=== PATIENT | female | born 1945 | race African-American/Black ===

== ENCOUNTER 2025-09-16 18:56 | Inpatient (IN) | payer MEDICARE, MEDICAID ==
[~2025-09-16] VITALS: Ht 172.7 cm; Wt 81.8 kg
[~2025-09-16 18:56] MED LIST: AMLO-912 PO; CARV25TA2 PO; CLON0.2T; SPIR25TA5 PO; [UNRECOGNIZED DRUG - REMARK]
[2025-09-16 19:35] LABS: MEAN PLATELET VOLUME 8.6 FL (7.4-10.4)
[2025-09-16 19:37] LABS: RED CELL DISTRIBUTION WIDTH 15.9 % (11.5-14.5)
--- NOTE | 2025-09-16 19:41 | RADIOLOGY REPORT ---
EXAM: DI CHEST,SINGLE VIEW HISTORY: CP TECHNIQUE: 1 view of the chest COMPARISON: None FINDINGS/IMPRESSION: LUNGS: No pleural effusion, consolidation, or pneumothorax. MEDIASTINUM: Mild prominence of the aortic knob, which may be suggestive of hypertension. BONES: No acute osseous abnormality. OTHER: None.
[2025-09-16 19:52] LABS: CREATININE 0.99 MG/DL (0.40-0.90); PRO BRAIN NATRIURETIC PEPTIDE 414 PG/ML (0-450); TOTAL CARBON DIOXIDE 19.8 MMOL/L (24-32); eCRCL 46 ML/MIN; eGFR 65 ML/MIN
[2025-09-16 19:56] LABS: EOSINOPHILS % (MANUAL) 1.0 % (0-6); LYMPHOCYTES % (MANUAL) 47.0 % (21-51); MONOCYTES % (MANUAL) 3.0 % (2-12); NEUTROPHILS % (MANUAL) 49.0 % (42-75); PLATELET ESTIMATE NORMAL
--- NOTE | 2025-09-16 20:19 | Physician Documentation ---
History of Present Illness ~ Chief Complaint: Mechanical Fall Stated Complaint: FALL/HEAD STRIKE Time Seen by MD: 19:26 Primary Medical Doctor: NONE Source: patient Mode of Arrival: POV Exam Limitations: no limitations HPI Presents secondary to fall. She states she is weak and fell backwards hitting the back of her head. Denies taking blood thinners. All over body pain. Furthermore, states she is having pain described as a weird sensation when she voids. Denies abdominal pain. Denies nausea vomiting diarrhea. She denies chest pain or pressure. Denies shortness or breath. Denies dizziness, lightheadedness or syncope. Tetanus within 5 Years?: No Medication Reconciliation Allergies: Coded Allergies: baclofen (Verified Allergy, Intermediate, INCONTINENCE, 09/16/25) Scheduled Amlodipine Besylate (Norvasc), 1 TABLET PO DAILY Carvedilol (Carvedilol), 25 MG PO BID, (Reported) Spironolactone (Spironolactone), 1 TABLET PO DAILY Miscellaneous Medications Clonidine HCl (Clonidine HCl), (Reported) [Unknown Htn Meds], (Reported) Past Medical History Past Medical History: Congestive Heart Failure, Hypertension, COPD, Diabetes Past Surgical History: , orthopedic surgeries Smoking Status: Current every day smoker Alcohol Use: Heavy Drug Use: none Lives with: Family Lives In: Home Occupation: disabled Review of Systems ROS ROS negative except noted in HPI Physical Exam Vital Signs: RN Vital Signs have been reviewed: Yes, Temperature: 97.2, Source: Temporal, Heart Rate: 68, Respiratory Rate: 18, Pulse Oximetry: 98, Weight: 81.810 Oxygen Flow Rate: 0 Pulse Oximetry Reflects: adequate oxygenation Physical Exam General: Awake, alert, oriented. No apparent distress HEENT: Normocephalic. There is soft tissue swelling to the posterior head. Oropharynx is normal. Pupils equal and reactive. Respiratory: Lungs are wheezing on the right to auscultation. Clear left. No respiratory distress. Chest: Normal shape and size. No accessory muscle use. Cardiovascular: Regular rate and rhythm. S1-S2. No murmur, gallop, rub. Gastrointestinal: Abdomen is soft. generalized tenderness to palpation. Bowel sounds present. Extremities: No lower extremity edema, cyanosis or clubbing. Neurologic: Alert and oriented x4. Nonfocal. Moving all extremities. No focal weakness. No slurred speech. facial features symmetrical. Psychiatric: Normal mood and affect. Skin: Normal color. Warm and dry. Progress Progress Note 2144: Re-evaluated after labs received. She now states that she drinks 1 pint per day of ETOH. She states that she is intermittently dizzy and has had sycnope in the past. Last episode of syncope was months ago. She states that she has been more weak than usual. She usually walks with a walker. She states that she has all over body pain which is chronic. 2204: Admit to resident Results/Orders Results/Orders Orders - KARLA RITCHIE FLEET SALESPERSON Chest,Single View (09/16/25 19:14) Monitor (09/16/25 19:14) Saline Lock (09/16/25 19:14) Oxygen (09/16/25 19:14) BMP (09/16/25 19:14) PBNP (09/16/25 19:14) Electrocardiogram (09/16/25 19:14) Hs Troponin I W Calculations (09/16/25 22:14) Ct Head (09/16/25 19:14) Ct Cervical Spine (09/16/25 20:10) Recheck Vital Signs (09/16/25 ) Cult Urine + Universal Ct (09/16/25 21:18) Culture Blood (09/16/25 21:43) Saline Lock (09/16/25 21:43) Page Hospitalist (09/16/25 21:43) Fill Out Med Reconciliation (09/16/25 21:43) C-Reactive Protein (09/16/25 19:24) Ethanol (09/16/25 19:24) MG (09/16/25 19:24) Osmolality (09/16/25 19:24) PHOS (09/16/25 19:24) TSH (09/16/25 19:24) Hgb A1c (09/16/25 19:24) Lipid Panel (09/16/25 19:24) Completed Orders - KARLA RITCHIE FLEET SALESPERSON Chest,Single View (09/16/25 19:14) Cbc/Diff (09/16/25 19:14) Hs Troponin I W Calculations (09/16/25 19:14) Hs Troponin I W Calculations (09/16/25 21:14) Ct Head (09/16/25 19:14) Man Diff (09/16/25 19:24) Ct Cervical Spine (09/16/25 20:10) Ua W/Microscopic, Cult If Ind (09/16/25 20:50) ESR (09/16/25 21:43) Normal Saline 1000ml (0.9% Sodium Chlori (09/16/25 21:45) Ceftriaxone 2gm/D5w 50ml Bag (Rocephin 2 (09/16/25 21:45) Lacticsepsis (09/16/25 21:43) Medications Received in ER Medications (Trade) Dose Ordered Sig/Kadie Route PRN Reason Start Time Stop Time Status Last Admin Dose Admin (0.9% sodium chloride (NS) 1000ml IV soln) 1,000 ml ONCE ONCE IVB 09/16/25 21:45 09/16/25 21:51 DC 09/16/25 22:38 1,000 ML Ceftriaxone Sodium/Dextrose 50 ml @ 100 mls/hr ONCE ONCE IV 09/16/25 21:45 09/16/25 22:14 DC 09/16/25 22:39 100 MLS/HR (Ford 10/325mg tab) 1 tab Q4H PRN PO SEVERE PAIN 7-10 09/16/25 22:45 09/16/25 23:11 1 TAB Vital Signs 09/16/25 09/16/25 09/16/25 09/16/25 19:04 19:30 20:44 21:09 Temp 97.2 Pulse 68 71 67 Resp 18 18 16 18 B/P (MAP) 129/74 124/76 (92) 125/72 (89) Pulse Ox 98 100 99 O2 Flow Rate 0 0 09/16/25 09/16/25 23:04 23:11 Pulse 70 Resp 18 16 B/P (MAP) 146/82 (103) Pulse Ox 99 Laboratory Tests Test 09/16/25 19:24 09/16/25 20:50 09/16/25 22:07 White Blood Count 3.2 L Red Blood Count 3.99 L Hemoglobin 12.7 Hematocrit 38.6 Mean Corpuscular Volume 96.6 Mean Corpuscular Hemoglobin 31.8 H Mean Corpuscular Hemoglobin Concent 32.9 L Red Cell Distribution Width 15.9 H Platelet Count 197 Mean Platelet Volume 8.6 Neutrophils (%) (Auto) 40.5 L Lymphocytes (%) (Auto) 52.3 H Monocytes (%) (Auto) 4.0 Eosinophils (%) (Auto) 2.2 Basophils (%) (Auto) 1.0 Neutrophils # (Auto) 1.3 L Lymphocytes # (Auto) 1.6 Monocytes # (Auto) 0.1 Eosinophils # (Auto) 0.1 Basophils # (Auto) 0.0 CBC Comment Differential Total Cells Counted 100 Neutrophils % (Manual) 49.0 Lymphocytes % (Manual) 47.0 Monocytes % (Manual) 3.0 Eosinophils % (Manual) 1.0 Smudge Cells Few Platelet Estimate Normal Red Blood Cell Morphology Perf Basophilic Stippling Anisocytosis 1+ Erythrocyte Sedimentation Rate 30 Coagulation Comments Sodium Level 144 Potassium Level 3.8 Chloride Level 112 H Carbon Dioxide Level 19.8 L Anion Gap 12 Blood Urea Nitrogen 26 H Creatinine 0.99 H Estimated GFR/1.73 m2 65 BUN/Creatinine Ratio 26.3 H Glucose Level 91 Calcium Level 8.6 Troponin I High Sensitivity 11 11 C-Reactive Protein 0.24 Pro-B-Type Natriuretic Peptide 414 Albumin 3.4 Chemistry Comments Urine Specimen Description Non-specified Urine Color Yellow Urine Clarity Clear Urine pH 6.0 Urine Specific [place] 1.020 Urine Protein 30 H Urine Glucose (UA) Negative Urine Ketones Negative Urine Occult Blood Trace-intact Urine Nitrite Negative Urine Bilirubin Negative Urine Urobilinogen 0.2 Urine Leukocyte Esterase Trace H Urine RBC 0-2 Urine WBC 5-10 H Urine Squamous Epithelial Cells Few Urine Bacteria 4+ Urine Culture Indicated Indicated Volume Urine Centrifuged 10 ml Urine Comment Lactic Acid Level 5.4 *H Troponin I High Sens Percent Delta 0 Troponin I Hi Sens Absolute Change 0 Microbiology Date/Time Source Procedure Growth Status 09/16/25 21:18 Urine Nonspecified Urine Culture - Preliminary Culture received. Resulted EKG/XRAY/CT/US/VASC/MRI EKG : Intepreting Monitor?: Yes Indication: weakness EKG: NSR EKG Blocks: none Bureau: normal Hypertrophy: none Additional Comment EKG interpreted by me: SR rate 68. Normal axis. QT prologation with QTc 592. Non-sp ST changes. Heart Score: Heart Score Response (Comments) Value History Slightly Suspicious 0 EKG Repolarization Disturb 1 Age >65 2 Risk Factors 1 or 2 risk factors 1 Troponin Normal limit 0 Total 4 Medical Decision Making Additional information obtaine: old records, family Findings Initially presented with complaints of falling backwards hitting her head. Denied loss of consciousness. Denied dizziness, lightheadedness or syncope. Given her age and risk factor CTA of the head and neck was performed. These were without acute intracranial hemorrhage and no fractures were noted. She did have soft tissue injury to her posterior head after the fall. No laceration. She complained of significant weakness. She is usually ambulatory with a walker however he has had three falls today alone. Given her significant weakness full laboratory evaluation was completed including ACS protocol. Her troponin was negative. NT proBNP was normal. She states history of CHF. No evidence of congestion on chest x-ray. She complained of a weird feeling when she voids i nclude. Her urine showed plus four bacteria and small amount of leukocyte esterase. Given the she was treated with ceftriaxone. She has a leukopenia along with suspected source of infection. Lactic acid was ordered and she was requested for admission given her urinary tract infection and significant weakness. After admission was requested her lactic acid came back at 5.4. She is not hypotensive and does not eat severe sepsis criteria. 1 L IV fluids was provided. Given her history of CHF further fluid administration contraindicated. Differentials, acute coronary syndrome, pulmonary embolism, aortic dissection. Clinical presentation not consistent with these. Considered sepsis as above. Considered CVA. She has no focal deficits. The case was discussed with the attending physician, Miguel. The plan of care, diagnostic evaluation and medical decision making were discussed. The attending physician was available for consultation, where the diagnostic findings as well as the eventual disposition. Differential Dx:Considerations: Include: Closed head injury, Cardiac injury Departure Time of Disposition: 21:50 Disposition: ADMITTED INPATIENT Impression: Primary Impression: Urinary tract infection Qualified Codes: N30.00 - Acute cystitis without hematuria Additional Impressions: Weakness Fall Qualified Codes: W19.XXXA - Unspecified fall, initial encounter Alcohol abuse QT prolongation Referrals: NO PRIMARY CARE PROVIDER (PCP) Signature Scribe Signature: No scribe Attestation: The note accurately reflects work and decisions made by me.Karla Tsai NP 09/16/25 23:21 This note was created with the assistance of voice recognition software whereby errors in grammar, syntax, and/or spelling may have occurred despite active proofreading efforts by the author. Please do not hesitate to contact the provider for clarification or for questions regarding the content of this document. KARLA RITCHIE NP Sep 16, 2025 20:19
--- NOTE | 2025-09-16 20:25 | RADIOLOGY REPORT ---
EXAM: CT CT CERVICAL SPINE INDICATION: FALL TECHNIQUE: Non contrast axial images of the cervical spine have been obtained with coronal and sagittal reformatted images. CT scans at this facility use dose modulation, iterative reconstruction, and/or weight based dosing when appropriate to reduce radiation dose to as low as reasonably achievable. COMPARISON: None FINDINGS: ANATOMY: Mild reversal of the normal cervical lordosis. VERTEBRAL BODIES: Minimal superior endplate height loss of T4 measuring up to 10 percent correlate with clinical exam no discrete acute fracture plane however correlate with level of point tenderness. The dens is intact, the lateral masses of C1 are normally aligned, and the atlantodental interval is normal for age. Osseous fusion of the C5-6 vertebral bodies. SPINAL CANAL: No significant spinal canal stenosis. INTERVERTEBRAL DISCS: No CT findings to suggest traumatic disc herniation or acute hematoma. SOFT TISSUES: There is no prevertebral soft tissue swelling. OTHER: The partially visualized lung apices are clear. Retropharyngeal horizontal bilateral carotid vessels. IMPRESSION: 1. Minimal superior endplate height loss of T4 measuring up to 10 percent correlate with clinical exam no discrete acute fracture plane however correlate with level of point tenderness.
--- NOTE | 2025-09-16 20:25 | RADIOLOGY REPORT ---
EXAM: CT CT HEAD INDICATION: FALL TECHNIQUE: CT of the head without intravenous contrast. Radiation Dose Information: CT Dose: CTDI volume is 56.69 mGy. Dose-length product is 1069.61 mGy*cm The dose indicators for CT are the volume Computed Tomography (CT) Dose Index (CTDIvol) and the Dose Length Product (DLP), and are measured in units of mGy and mGy-cm, respectively. These indicators are not patient dose, but values generated from the CT scanner acquisition factors. The report includes radiation exposure data for exposures received during this examination. COMPARISON: None FINDINGS: Evaluation is degraded by motion artifact. No acute territorial infarct, intracranial hemorrhage, or mass effect. There are global involutional changes with compensatory prominence of the ventricles and sulci. Patchy periventricular and subcortical white matter hypoattenuation is nonspecific but may be related to small vessel ischemic disease. Bilateral lens implants. The paranasal sinuses and mastoid air cells are clear. Tiny left posterior scalp hematoma without underlying fracture. IMPRESSION: 1. No acute territorial infarct, intracranial hemorrhage, or mass effect. 2. Age-related involutional changes. Chronic microvascular changes. 3. Tiny left posterior scalp hematoma without underlying fracture.
[2025-09-16 21:08] LABS: LEUKOCYTE ESTERASE ,URINE TRACE (Neg); NITRITES, URINE NEGATIVE (Neg); OCCULT BLOOD,URINE TRACE-INTACT (Neg)
[2025-09-16 21:11] LABS: UA COLLECTION TYPE NON-SPECIFIED
[2025-09-16 21:17] LABS: SQUAMOUS EPITHELIAL CELL,UR FEW /LPF (FEW)
[2025-09-16] MEDS: normal saline 1000ML IV soln IVB ONE (22:38)
[2025-09-16] MEDS: CefTRIAXone 2gm/D5W 50ml BAG 50 ML IV ONE (22:39)
[2025-09-16] MEDS ORDERED: magnesium sulf-water 2g/50mL 50 ML IV PRN (22:45)
[2025-09-16] MEDS ORDERED: glucagon, human recombinant 1mg kit SUBCUT PRN (22:45)
[2025-09-16] MEDS ORDERED: mag hydrox/Alum hydrox/simeth 30ml oral suspension PO PRN (22:45)
[2025-09-16] MEDS ORDERED: DEXTROSE 15 GM of carb/4 tabs (each vial/BOTTLE has 4 tablets) PO PRN ×2 (22:45)
[2025-09-16] MEDS ORDERED: dextrose 50%-water 50ml dispensing syringe IV PRN ×2 (22:45)
[2025-09-16] MEDS ORDERED: magnesium sulf-water 4G/100mL 100 ML IV PRN (22:45)
[2025-09-16] MEDS ORDERED: potassium Cl 40MEQ/1/2NS 520ml 520 ML IV PRN (22:45)
[2025-09-16] MEDS ORDERED: magnesium hydroxide 30ml (MOM) UD suspension PO PRN (22:45)
[2025-09-16] MEDS ORDERED: ondansetron/PF 4mg/2ml inj IV PRN (22:45)
[2025-09-16] MEDS ORDERED: magnesium Cl slow-release 64mg tablet PO PRN (22:45)
[2025-09-16] MEDS ORDERED: potassium Cl 20 mEq SR tablet PO PRN ×2 (22:45)
[2025-09-16] MEDS: HYDROcodone/acetaminophen 10/325mg tab PO PRN (23:11)
--- NOTE | 2025-09-16 23:21 | HISTORY AND PHYSICAL-Residence ---
History & Physical Providers to CC Resident Creating Document: IRMA ABEL, RES CC: ANDREA NOONAN MD ~ History of Present Illness Primary Medical Doctor: NONE Reason for Admit\Complaint: Syncope, UTI History of Present Illness A 80-year-old female patient with a medical history that includes hypertension, COPD, congestive heart failure, and multiple myeloma presented to the emergency department with complaints of weakness and multiple falls throughout the day. According to her niece, the patient experienced three falls today.The first fall occurred while she was using the restroom, after which she needed assistance to get back up. The second fall took place while she was smoking on her balcony; she felt dizzy and fell. Her third fall happened when she got out of bed and fell, hitting her head against a small cupboard nearby. The patient reported experiencing mild episodes of dizziness and occasional blackouts during the falls, though these symptoms are not persistent or consistent with each fall. She has also noted palpitations during some of the incidents but denied experiencing diaphoresis, seizures, carotid hypersensitivity, or chest pain. She has a history of recurrent falls over the last two years, which she attributes to the weakness caused by her multiple myeloma. Patient lives in her house with her niece Patient's primary care doctor is from [facility] Patient has not oncologist from [facility], but does not remember the name of the doctor Patient normally uses a walker in her house Allergies: Coded Allergies: baclofen (Verified Allergy, Intermediate, INCONTINENCE, 09/16/25) Home Medications Home Medications Active Spironolactone 25 Mg Tablet 1 Tablet PO DAILY Norvasc (Amlodipine Besylate) 10 Mg Tablet 1 Tablet PO DAILY Reported Carvedilol 25 Mg Tablet 25 Mg PO BID Clonidine HCl 0.2 Mg Tablet [Unknown Htn Meds] Past Medical History Past Medical History Hypertension COPD Congestive heart failure Multiple myeloma Gout Past Surgical History Surgical History Comment Bilateral knee replacement Bilateral cataract surgery Cervical spine surgery post a fall 20 years ago Past Social History Social History Comment Patient smokes one pack of cigarettes for three days, prior to this used to smoke one pack of cigarettes for the last 60 years Patient drinks about one pt of whiskey every day for the last 50 years Patient denied any the illicit drug use Smoking: Non-Smoker Alcohol Use: Heavy Drug Use: None Lives with: Family Lives In: Home Occupation: disabled ROS ROS Constitutional: No fever, no dizziness, weakness, no decrease in appetite HEENT: Normal vision. No sore throat, epistaxis, tinnitus Cardiovascular: No chest pain/discomfort, palpitations, syncope. no pedal edema Respiratory: No sob, cough,hemoptysis Gastrointestinal: No abdominal pain, nausea, vomiting. No diarrhea, melena. Genitourinary: No frquency, urgency, incontinence, nocturia. No dysuria, hematuria Musculoskeletal: Complains of low back pain Endocrine: No fatigue, polydipsia, polyuria. No heat or cold intolerance Neurologic: No headache, vertigo. No weakness, numbness or tingling of extremities Psychiatric: No hallucinations/delusions, no anhedonia, no suicidal ideation Hematologic: No bruises Exam Vitals: Vital Signs Date Time Temp Pulse Resp B/P (MAP) Pulse Ox O2 Delivery O2 Flow Rate FiO2 09/16/25 23:11 16 09/16/25 23:04 70 146/82 (103) 99 09/16/25 20:44 0 09/16/25 19:04 97.2 General: General: Awake, oriented to person, place and time HEENT: Conjunctive are pink, sclerae clear, no icterus, pupil is equal in both sides, reactive to light, no ear discharge, no pharyngeal erythema or an edema. Mild blurry vision noted in left eye Neck: Supple, no JVD, no lymphadenopathy and thyromegaly. Chest: Increased work of breathing noted bilaterally, no additional sounds no rhonchi no wheezing at the moment. Cardiovascular: S1-S2 irregular sinus rhythm and, irregular rate, no gallops, no rubs, no murmurs Abdomen: No visible peristalsis, Bowel sounds present on auscultation, soft, no tenderness, no guarding, no rigidity. Scar post , burn aliya Extremities: No obvious deformities, no pitting edema bilaterally, capillary refill intact, peripheral pulsations are intact on both sides Neurologic: Mental status: alert and conscious, oriented to place, person and time, preserved memory, normal speech. Cranial nerves I-XII: Normal. Motor system: Preserved power, coordination, tremors noted in bilateral upper extremities, strength 5/5 in the upper extremities, 2/5 in left lower extremity, 3/5 in right lower extreme Sensory system: Preserved temperature, pain and vibration sensation. 2+ deep tendon reflexes in biceps, triceps, quadriceps. Negative Babinski. Cerebellar: No nystagmus, dysdiadochokinesia, normal [id number] testing. Musculoskeletal: No joint swelling, deformities, inflammations, and no scoliosis and back tenderness. Bilateral knee replacement scars noted Skin: Warm and dry. Dry oral mucosa. Diagnostic Data Last Recorded Lab Results: [id number]/16/[id number] Diagnostic Data: Laboratory Tests Test 09/16/25 19:24 Coagulation Comments Counseling Services Smoking & Tobacco Cessation: 3-10 Minutes (Discussed smoking cessation with the patient including the risk continued smoking with the patient including: lung cancer, stroke, heart attack, poor wound healing, increase in facial drinking, risk of MRSA skin infections.) Advance Care Planning Advanced Care plannin - 30 Minutes (Spent 17 minutes discussing advanced care directive/resuscitative methods patient decided she wanted to be DNR) Additional Plan Syncopal attack Patient has a mix of vasovagal syncope +possible orthostatic hypotension +possible cardiovascular syncopal episodes Patient's blood pressure right now is well within normal limits, EKG read sinus rhythm, prolonged QT interval >500ms Head CT reported:Age-related involutional changes. Chronic microvascular changes.Tiny left posterior scalp hematoma without underlying fracture. Plan Patient received 1 L fluid bolus, initiated the patient on 100 mL normal saline Orthostatic vitals ordered Ordered echocardiogram with bubble study, telemetry monitoring initiated Fall precautions, PT evaluations in place, neuro checks in place Vascular b/l carotid US ordered F/U repeat EKG at 12pm Please consult cardiology am for further recs Avoid QT prolongation drugs like Zofran, anti depressants, antipsychotics Urinary tract infection Patient complained of mild burning micturition, WBC low, urinalysis-trace leukocyte esterase, 5-10 WBCs consistent with UTI Does not meet SIRS criteria, but has a source of infection with elevated lactic acidosis and procalcitonin Initiated the patient on sepsis protocol Plan Patient received 1 L fluid bolus in ED, the patient another 1.5 L bolus, initiated the patient on 100 mL NS Initiated the patient on ceftriaxone, and probiotic culturelle Follow up with urine cultures COPD, not in acute exacerbation Patient normally uses inhalers at home Patient is currently on room air saturating 98% Initiated the patient on oxygen if saturation drops below 88% Initiated the patient on breathing treatments p.r.n. Chronic Congestive heart failure with unknown ejection fraction Chest x-ray appears normal, proBNP within normal limit, no signs of fluid overload Plan Ordered echocardiogram Awaiting med rec, we will initiate patient's home medication once med rec is done Diabetes mellitus type 2 Patient states that she has a history of diabetes mellitus, not on any medication A1c is within normal limits Hypertension History of hypertension, blood pressure is well controlled right now Awaiting med rec for patient's home medication hypotension Gout As per patient, she has had few episodes of acute gout occasionally in her toes and thumb She takes allopurinol every day Multiple myeloma Mild anemia with low WBC, low neutrophil count low RBC line, mild anemia- possibly early marrow suppression As per patient she was diagnosed with multiple myeloma two years ago, could not show any new records Not on any treatment Calcium, creatinine within normal limits Ordered total protein Plan Continue to monitor patient's CBC closely Chronic low back pain Patient said that she has chronic low back pain Initiated the patient on pain medications p.r.n. CODY on possible CKD stage G2a Patient's creatinine is at 0.99 Ordered urine lytes, continue to closely monitor patient's creatinine Active alcohol use disorder and tobacco use disorder Patient's ETOH is elevated at 105, patient's CIWA score is five, elevated lactic acid Plan Initiated the patient on moderate alcohol withdrawal protocol Initiated the patient on nicotine patch 21 mg t.i.d. Monitor closely for signs of alcohol withdrawal like seizures, hallucinations Social Service and substance use navigator consult in place On examination, patient has tremors noted on upper extremities,could be possibly alcohol withdrawal tremors,please reassess for possible Parkinson signs considering patient's age and falls once patient stabilizes. Allergies: Baclofen Code Status: DNR DVT Prophylaxis: SCDs Analgesia/Sedation: Morphine/[place] Lines/Tubes: PIV Nutrition: Heart healthy diet PT:yes Prognosis: Guarded Disposition: Continue to monitor the patient, follow up with echocardiogram, orthostatic vitals. Irma Abel MD Internal medicine resident,[id number] Attending Addendum I discussed this case and saw the pt with the resident team Agree with assessment and plan as documented Date of Service: Sep 17, 2025 Billing Provider: ANDREA NOONAN MD, JAHNAVI, RES Sep 16, 2025 23:21 ANDREA NOONAN MD Sep 17, 2025 10:14
[2025-09-16 23:22] LABS: APTT 26 SECONDS (22-32); INR 1.0 INR
[2025-09-16 23:32] LABS: OSMOLALITY 357 MOSM/K (280-300)
[2025-09-16 23:35] LABS: CHOL/HDL RATIO 1.6 (0.00-4.99); ETHANOL 189 MG/DL (<10); LDL CHOLESTEROL 32 MG/DL (50-100); PHOSPHORUS 5.1 MG/DL (2.3-4.5)
[2025-09-16] MEDS ORDERED: albuterol 2.5 MG/3 ML nebule NEB PRN (23:50)
[2025-09-17] VITALS (19 sets, daily range): BP systolic 141–175; BP diastolic 49–94; PULSE 73–109; RESP 12–20; TEMP 98.2–101.7; O2SAT 95–99
[2025-09-17] MEDS: ipratropium/albuterol 3ml nebule NEB SCH (00:07)
[2025-09-17] MEDS: normal saline 500ml IV soln 500 ML IV ONE (00:41)
[2025-09-17] MEDS: normal saline 1000ml 1,000 ML IV ONE (00:41)
[2025-09-17 00:51] LABS: MEAN PLATELET VOLUME 8.4 FL (7.4-10.4); RED CELL DISTRIBUTION WIDTH 16.1 % (11.5-14.5)
[2025-09-17 01:02] LABS: OSMOLALITY UA 459 MOSM/K (50-1400)
[2025-09-17 01:03] LABS: CREATININE 0.90 MG/DL (0.40-0.90); TOTAL CARBON DIOXIDE 21.8 MMOL/L (24-32); eCRCL 51 ML/MIN; eGFR 73 ML/MIN
[2025-09-17 01:15] LABS: CREATININE,URINE RANDOM 35.0 MG/DL; URINE AMPHETAMINE SCREEN NEGATIVE (Neg); URINE BARBITUATE SCREEN NEGATIVE (Neg); URINE BENZODIAZEPINES SCREEN NEGATIVE (Neg); URINE CANNABINOID SCREEN NEGATIVE (Neg); URINE COCAINE SCREEN NEGATIVE (Neg); URINE METHADONE SCREEN NEGATIVE (Neg); URINE OPIATE SCREEN NEGATIVE (Neg); URINE PHENCYCLIDINE SCREEN NEGATIVE (Neg)
[2025-09-17] MEDS: normal saline 1000ml 1,000 ML IV SCH (01:35)
[2025-09-17 01:39] LABS: EOSINOPHILS % (MANUAL) 2.0 % (0-6); LYMPHOCYTES % (MANUAL) 39.0 % (21-51); MONOCYTES % (MANUAL) 3.0 % (2-12); NEUTROPHILS % (MANUAL) 56.0 % (42-75); PLATELET ESTIMATE NORMAL
[2025-09-17] MEDS ORDERED: DEXTROSE 15 GM of carb/4 tabs (each vial/BOTTLE has 4 tablets) PO PRN (03:15)
[2025-09-17] MEDS ORDERED: glucagon, human recombinant 1mg kit SUBCUT PRN (03:15)
[2025-09-17] MEDS ORDERED: dextrose 50%-water 50ml dispensing syringe IV PRN ×2 (03:15)
[2025-09-17] MEDS: DEXTROSE 15 GM of carb/4 tabs (each vial/BOTTLE has 4 tablets) PO PRN (03:24)
[2025-09-17] MEDS ORDERED: diazepam inj 5 MG/ML inj. IV PRN (05:55)
[2025-09-17] MEDS ORDERED: INSULIN LISPRO 100 UNIT/ML INSULN.PEN MULTI-DOSE SQ SCH (07:00)
[2025-09-17] MEDS: K and/or MAG REPLACEMENT MC SCH (08:00)
[2025-09-17] MEDS: CefTRIAXone/D5W-Rocephin 1gm 50 ML IV SCH (08:43)
[2025-09-17] MEDS: docusate sod 100mg capsule PO SCH (08:43)
[2025-09-17] MEDS: lactobacillus rhamnosus 10,000 MMU CELLS/CAPSULE PO SCH (08:43)
[2025-09-17] MEDS: PERFLUTREN PROTEIN-A MICROSPHR (Optison) 0.22 MG/ML 3ML VIAL IV ONE (10:00)
--- NOTE | 2025-09-17 10:07 | VASCULAR REPORT ---
Carotid Duplex Date: 09/17/2025 09:04 AM Clinical History: Syncope/dizziness. Comparison: None Technique: Duplex Doppler evaluation of the extracranial carotid and vertebral arteries including color Doppler and spectral/pulsed waveform analysis was performed. Findings: RIGHT SIDE: There are atherosclerotic calcifications in the right carotid bulb, internal and external carotid arteries. The peak systolic velocities are 106 cm/s in the distal CCA and 60 cm/s in the proximal ICA.The ICA/CCA ratio is 0.9. The external carotid artery is patent with peak systolic velocity of 60 cm/s proximally. There is appropriate antegrade flow in the right vertebral artery. LEFT SIDE: There are mild atherosclerotic calcifications in the right carotid bulb, internal and external carotid arteries. The peak systolic velocities are 106 cm/s in the distal CCA and 78 cm/s in the proximal ICA. The ICA/CCA ratio is 1.0. The external carotid artery is patent with peak systolic velocity of 79 cm/s proximally. There is appropriate antegrade flow in the left vertebral artery. IMPRESSION: 1. No hemodynamically significant stenosis noted in the right carotid system. 2. No hemodynamically significant stenosis noted in the left carotid system. 3. Bilateral antegrade vertebral artery flow.
--- NOTE | 2025-09-17 10:18 | ELECTROCARDIOGRAPH REPORT ---
[facility] Test Date: 2025-09-16 Test Time: 19:12:38 Pat Name: ZHANG MCCARTHY Department: EMERGENCY ROOM Room: ORTHO [address] A Gender: F Sign Installer: DRE : 1945 Requested By: ANAYELI RITCHIE Order Number: [id number] Reading MD: Dr. Richard Sheppard Measurements Intervals [place] Rate: 68 P: 0 NV: 0 QRS: 46 QRSD: 65 T: 241 QT: 556 QTc: 592 Interpretive Statements Atrial flutter with predominant 4:1 AV block Posterior infarct, old Nonspecific T abnormalities, lateral leads Minimal ST elevation, diffuse leads Prolonged QT interval Electronically Signed On 09-17-2025 11:40:[address] Richard Sheppard Please click the below link to view image of tracing.
[2025-09-17] MEDS ORDERED: CHOL200042 PO (11:43)
[2025-09-17] MEDS ORDERED: TRAZ-251 PO (11:44)
[2025-09-17] MEDS ORDERED: LISI20TA28 PO (11:45)
[2025-09-17] MEDS ORDERED: ALLO100T15 PO (11:46)
[2025-09-17] MEDS ORDERED: TIOT18CA3 INH (11:50)
--- NOTE | 2025-09-17 16:07 | PROGRESS NOTE- Residence ---
Progress Note - Resident Providers to CC Resident Creating Document: PAU BLAKE, RES ~ Antibiotic Timeout Antibiotic Ordered?: Yes Subjective Patient was seen and examined on bedside, she reports she has been falling off for the past two years and experience fall once a week. She reports that before falling she experience dizzy sweaty,nauseated and lightheadness passes out for 2-3 minutes and she also reports she has balance issues. She denies any triggering factor for syncope. In addition to that she reports she has multiple myeloma which was diagnosed 2 years ago, and is not on any treatment. Apart from that she denies having any history of diabetes mellitus. Objective Vital Signs Date Time Temp Pulse Resp B/P (MAP) Pulse Ox O2 Delivery O2 Flow Rate FiO2 09/17/25 15:08 82 16 Room Air 0.0 09/17/25 15:03 97 21 09/17/25 14:00 99.1 09/17/25 10:00 162/84 (110) Result Diagram: 09/17/253609/17/2536 General: Awake, oriented to person, place and time HEENT: Conjunctive are pink, sclerae clear, no icterus, pupil is equal in both sides, reactive to light, no ear discharge, no pharyngeal erythema or an edema. Neck: Supple, no JVD, no lymphadenopathy and thyromegaly. Chest:, no additional sounds no rhonchi no wheezing at the moment, normal breathing Cardiovascular: S1-S2 irregular sinus rhythm and, irregular rate, no gallops, no rubs, no murmurs Abdomen: Bowel sounds present on auscultation, soft, no tenderness, no guarding, no rigidity. Scar post , burn aliya Extremities: No obvious deformities, no pitting edema bilaterally, capillary refill intact, peripheral pulsations are intact on both sides Neurologic: Mental status: alert and conscious, oriented to place, person and time, preserved memory, normal speech. Cranial nerves I-XII: Normal. Motor system: Preserved power, coordination, tremors noted in bilateral upper extremities, strength 5/5 in the upper extremities, 3/5 in left lower extremity, 5/5 in right lower extremity Sensory system: Preserved temperature, pain and vibration sensation. 2+ deep tendon reflexes in biceps, triceps, quadriceps. Negative Babinski. Cerebellar: No nystagmus, dysdiadochokinesia, normal [id number] testing. Musculoskeletal: No joint swelling, deformities, inflammations, and no scoliosis and back tenderness. Bilateral knee replacement scars noted Skin: Warm and dry Coagulation Studies Laboratory Tests Test 09/16/25 19:24 Prothrombin Time 10.2 SECONDS (9.0-12.0) INR International Normalized Ratio 1.0 INR Activated Partial Thromboplast Time 26 SECONDS (22-32) Coagulation Comments Advance Care Planning Advanced Care plannin - 30 Minutes Plan Plan Additional Plan Syncopal attack Patient has a mix of vasovagal syncope +possible orthostatic hypotension +possible cardiovascular syncopal episodes Patient's blood pressure right now is well within normal limits, EKG read sinus rhythm, prolonged QT interval >500ms Head CT reported:Age-related involutional changes. Chronic microvascular changes.Tiny left posterior scalp hematoma without underlying fracture. Plan Patient received 1 L fluid bolus, initiated the patient on 100 mL normal saline Orthostatic vitals ordered Ordered echocardiogram with bubble study, telemetry monitoring initiated Fall precautions, PT evaluations in place, neuro checks in place Vascular b/l carotid US ordered F/U repeat EKG at 12pm Please consult cardiology am for further recs Avoid QT prolongation drugs like Zofran, anti depressants, antipsychotics 09/17/25 Carotid U/S: No hemodynamically significant stenosis noted in the right carotid system. and No hemodynamically significant stenosis noted in the left carotid system. Echo:Normal LV size and wall thickness. Overall systolic function is hyperdynamic. LVEF is 70-75% and RV is normal size and function. Elevated right heart pressures. Follow up with orthostatic vitals. Urinary tract infection Patient complained of mild burning micturition, WBC low, urinalysis-trace leukocyte esterase, 5-10 WBCs consistent with UTI Does not meet SIRS criteria, but has a source of infection with elevated lactic acidosis and procalcitonin Initiated the patient on sepsis protocol Plan Patient received 1 L fluid bolus in ED, the patient another 1.5 L bolus, initiated the patient on 100 mL NS Initiated the patient on ceftriaxone, and probiotic culturelle Follow up with urine cultures 09/17/25 Symptomatic cystitis Continue Ceftriaxone preliminary urine culture grows gram negative loida. Lactic acid normal. COPD, not in acute exacerbation Patient normally uses inhalers at home Patient is currently on room air saturating 98% Initiated the patient on oxygen if saturation drops below 88% Initiated the patient on breathing treatments p.r.n. Chronic Congestive heart failure with unknown ejection fraction Chest x-ray appears normal, proBNP within normal limit, no signs of fluid overload Plan Ordered echocardiogram Awaiting med rec, we will initiate patient's home medication once med rec is done 09/17/25 History of Congestive heart failure Patient reports history of CHF,last EF unknown Echo today showed LVEF 70-75% Hypertension History of hypertension, blood pressure is well controlled right now Awaiting med rec for patient's home medication hypotension 09/17/25 Continued home medication lisinopril 20 mg and amlodipine 10 mg Gout As per patient, she has had few episodes of acute gout occasionally in her toes and thumb She takes allopurinol every day 09/17/25 Continued home medication allopurinol 100 mg BID Multiple myeloma Mild anemia with low WBC, low neutrophil count low RBC line, mild anemia- possibly early marrow suppression As per patient she was diagnosed with multiple myeloma two years ago, could not show any new records Not on any treatment Calcium, creatinine within normal limits Ordered total protein Plan Continue to monitor patient's CBC closely Chronic low back pain Patient said that she has chronic low back pain Initiated the patient on pain medications p.r.n. CODY on possible CKD stage G2a Patient's creatinine is at 0.99 Ordered urine lytes, continue to closely monitor patient's creatinine 09/17/25 CODY resolved Active alcohol use disorder and tobacco use disorder Patient's ETOH is elevated at 105, patient's CIWA score is five, elevated lactic acid Plan Initiated the patient on moderate alcohol withdrawal protocol Initiated the patient on nicotine patch 21 mg t.i.d. Monitor closely for signs of alcohol withdrawal like seizures, hallucinations Social Service and substance use navigator consult in place Code Status: DNR DVT Prophylaxis: heparin Disposition: Working on etiology of syncope, PT needs to work with patient, follow up with MRI. Date of Service: Sep 17, 2025 Billing Provider: DON AMATO MD Common Visit Codes: [id number] INP/OBS CARE(HIGH) PAU BLAKE, RES Sep 17, 2025 16:07 DON AMATO MD Sep 18, 2025 07:05
--- NOTE | 2025-09-17 17:49 | CARDIOLOGY REPORT ---
APPROVED REPORT EXAM: Comprehensive 2D, Doppler, and color-flow Echocardiogram with saline. Patient Location: 4009 A Heart Rate: 80's bpm Rhythm: SINUS Indications ABNORMAL EKG EVALUATE FOR PFO HYPTENSION COPD CONGESTIVE HEART FAILURE 2D Dimensions RVDd 3.0 cm LA Diam 3.8 cm IVSd 0.8 (0.7-1.1cm) LVDd 4.3 cm PWd 0.8 (0.7-1.1cm) LVDs 2.8 (2.5-4.0cm) LVOT Diameter 1.94 (1.8-2.4cm) IVC 15.25 mm Aortic Valve AoV Peak Ruben. 233.5 cm/s AoV VTI 39.5 cm AO Peak GR. 21.8 mmHg AO Mean GR. 13 mmHg LVOT VTI 30.77 cm LVOT Peak Ruben. 186.8 cm/s CHIO(VTI)/BSA 2.30 cm2/m2 CHIO (VTI) 2.30 cm2 AV DI 0.78 % Mitral Valve MV E Velocity 108.3 cm/s MV Peak Gr. 8 mmHg MV DECEL TIME 220 ms MV A Velocity 126.5 cm/s MV PHT 72 ms E/A Ratio 0.9 MVA (PHT) 3.06 cm2 MV VMax 139.9 cm/s TDI Lateral E' P. V 13.96 cm/s E/Lateral E' 7.8 Tricuspid Valve TR P. Velocity 329 cm/s RAP ESTIMATE 10 mmHg TR Peak Gr. 43 mmHg RVSP 53 mmHg Pulmonary Vein S1 Velocity 64.9 cm/s D2 Velocity 37.8 cm/s PVa Velocity 33.3 cm/s PVa Duration 152 msec LEFT VENTRICLE Normal LV size and wall thickness. Overall systolic function is hyperdynamic. LVEF is 70-75%. RIGHT VENTRICLE RV is normal size and function. Elevated right heart pressures with an RVSP of 53 mmHg. ATRIA The left atrium size is normal. Saline study was performed with 2 IV injections of 10 ccs of agitated normal saline at rest, with cough, and with valsalva. Negative saline study for right to left flow. AORTIC VALVE Trileaflet AV appears mildly sclerotic without stenosis. No insufficiency. MITRAL VALVE Mild MV annular calcification without stenosis. Trace regurgitation. TRICUSPID VALVE TV appears structurally normal with mild regurgitation. PULMONIC VALVE Pulmonic valve is not well visualized. GREAT VESSELS Aortic root is not well visualized. IVC is normal in size and collapses less than 50% with inspiration. PERICARDIUM Normal pericardium. No effusion. Other Information Study Quality: Adequate but difficult plax/psax due to COPD. Conclusion Normal LV size and wall thickness. Overall systolic function is hyperdynamic. LVEF is 70-75%. RV is normal size and function. Elevated right heart pressures with an RVSP of 53 mmHg. The left atrium size is normal. Saline study was performed with 2 IV injections of 10 ccs of agitated normal saline at rest, with cough, and with valsalva. Negative saline study for right to left flow. Trileaflet AV appears mildly sclerotic without stenosis. No insufficiency. Mild MV annular calcification without stenosis. Trace regurgitation. TV appears structurally normal with mild regurgitation. Normal pericardium. No effusion.
[2025-09-17] MEDS: heparin, porcine 5000 units/ml vial SQ SCH (20:42)
[2025-09-18] VITALS (7 sets, daily range): BP systolic 107–154; BP diastolic 59–88; PULSE 72–91; RESP 13–20; TEMP 97.2–99.9; O2SAT 96–99
[2025-09-18] MEDS: HYDROcodone/acetaminophen 5mg/325mg tablet PO PRN (04:31)
[2025-09-18 05:45] LABS: MEAN PLATELET VOLUME 8.2 FL (7.4-10.4); RED CELL DISTRIBUTION WIDTH 15.2 % (11.5-14.5)
[2025-09-18 06:11] LABS: CREATININE 1.01 MG/DL (0.40-0.90); TOTAL CARBON DIOXIDE 26.4 MMOL/L (24-32); eCRCL 46 ML/MIN; eGFR 64 ML/MIN
[2025-09-18] MEDS ORDERED: ipratropium 0.5 MG/2.5ML nebule IH SCH (08:00)
--- NOTE | 2025-09-18 09:46 | ELECTROCARDIOGRAPH REPORT ---
[facility] Test Date: 2025-09-18 Test Time: 09:44:43 Pat Name: ZHANG MCCARTHY Department: [facility] Patient ID: [facility]-[id number] Room: [place] [address] A Gender: F Support Group Manager: : 1945 Requested By: WALLACE ABEL Order Number: [id number] Reading MD: Dr. Floridalma Coreas Measurements Intervals [place] Rate: 78 P: 64 RI: 145 QRS: 52 QRSD: 97 T: 71 QT: 390 QTc: 445 Interpretive Statements Sinus rhythm Abnormal R-wave progression, early transition Nonspecific T abnormalities, lateral leads Electronically Signed On 09-19-2025 6:45:[address] Floridalma Coreas Please click the below link to view image of tracing.
--- NOTE | 2025-09-18 16:15 | PROGRESS NOTE- Residence ---
Progress Note - Resident Providers to CC Resident Creating Document: ZENIAZENIA HERRERAPRADEEP [place], RES ~ Antibiotic Timeout Antibiotic Ordered?: Yes Subjective The patient has been evaluated at the bedside. Endorses increased urinary frequency. Reports mild back pain, during the morning the patient had two episodes of fever. Objective Vital Signs Date Time Temp Pulse Resp B/P (MAP) Pulse Ox O2 Delivery O2 Flow Rate FiO2 09/18/25 15:18 16 09/18/25 10:00 98.7 80 122/79 (93) 98 Room Air 09/17/25 19:38 0.0 09/17/25 19:32 21 Physical exam: General: Awake, alert, oriented. No acute distress. Well-developed, hydrated and well-built nourished. No anemia, Jaundice or clubbing. HEENT: Conjunctive are pink, sclerae clear, no icterus, pupil is equal in both sides, reactive to light, no ear discharge, no pharyngeal erythema or an edema. Neck: Supple, no adenopathy, thyromegaly. Trachea is midline. No JVD. Chest: Respiratory: Vesicular breath sounds. No ronchi, crepitus. Mild wheezing bilaterally. Resonance is normal upon percussion of all lung sahni. Cardiovascular: S1-S2 regular sinus rhythm and, regular rate, no gallops, no rubs, no murmurs Abdomen: No visible distention, Bowel sounds present on auscultation, on palpation: soft, nontender, no guarding, no rigidity. Extremities: No obvious deformities, no pitting edema bilaterally, capillary refill intact, peripheral pulsations are intact on both sides Neurologic: Mental status: alert and conscious, oriented to place, person and time, preserved memory, normal speech. Cranial nerves I-XII: Normal. Motor system: Preserved power, coordination, no evidenced involuntary movements, strength 5/5 in four extremities. Sensory system: Preserved temperature, pain and vibration sensation. 2+ deep tendon reflexes in biceps, triceps, quadriceps. Negative Babinski. Cerebellar: No nystagmus, dysdiadochokinesia, normal [id number] testing. Skin: Warm and dry. Result Diagram: 09/18/25 0510 09/18/25 0510 Coagulation Studies Laboratory Tests Test 09/16/25 19:24 Prothrombin Time 10.2 SECONDS (9.0-12.0) INR International Normalized Ratio 1.0 INR Activated Partial Thromboplast Time 26 SECONDS (22-32) Coagulation Comments Assessment Assessment 80-year-old female patient came to the hospital after a syncopal episode. Plan Plan Sepsis secondary to Urinary tract infection/cystitis Patient complained of mild burning micturition, WBC low, urinalysis-trace leukocyte esterase, 5-10 WBCs consistent with UTI Does not meet SIRS criteria, but has a source of infection with elevated lactic acidosis and procalcitonin Initiated the patient on sepsis protocol Plan Patient received 1 L fluid bolus in ED, the patient another 1.5 L bolus, initiated the patient on 100 mL NS Initiated the patient on ceftriaxone, and probiotic culturelle Follow up with urine cultures 09/17/25 Symptomatic cystitis Continue Ceftriaxone preliminary urine culture grows gram negative loida. Lactic acid normal. 09/18/2025: The patient currently oriented to place, person and time. Endorses increased urinary frequency. Fevers of 101 during this morning. Urine culture showing Proteus mirabilis sensitive to ceftriaxone. Plan: Ceftriaxone 1 g IV daily. Culturelle 33999 mg b.i.d. Syncope: Metabolic encephalopathy likely secondary to UTI-resolved: Patient has a mix of vasovagal syncope +possible orthostatic hypotension +possible cardiovascular syncopal episodes Patient's blood pressure right now is well within normal limits, EKG read sinus rhythm, prolonged QT interval >500ms Head CT reported:Age-related involutional changes. Chronic microvascular changes.Tiny left posterior scalp hematoma without underlying fracture. Plan Patient received 1 L fluid bolus, initiated the patient on 100 mL normal saline Orthostatic vitals ordered Ordered echocardiogram with bubble study, telemetry monitoring initiated Fall precautions, PT evaluations in place, neuro checks in place Vascular b/l carotid US ordered F/U repeat EKG at 12pm Please consult cardiology am for further recs Avoid QT prolongation drugs like Zofran, anti depressants, antipsychotics 09/17/25 Carotid U/S: No hemodynamically significant stenosis noted in the right carotid system. and No hemodynamically significant stenosis noted in the left carotid system. Echo:Normal LV size and wall thickness. Overall systolic function is hyperdynamic. LVEF is 70-75% and RV is normal size and function. Elevated right heart pressures. Follow up with orthostatic vitals. 09/18/2025: Orthostatic vitals-negative. The patient was found with sepsis secondary to UTI. Syncope likely secondary to metabolic encephalopathy. Continue to monitor. COPD, not in acute exacerbation Patient normally uses inhalers at home Patient is currently on room air saturating 98% Initiated the patient on oxygen if saturation drops below 88% Initiated the patient on breathing treatments p.r.n. 09/18/2025: Mild wheezing evidenced bilaterally. Plan: Albuterol q.2h PRN. DuoNebs q.4h PRN for SOB or wheezing. Chronic Congestive heart failure with unknown ejection fraction Chest x-ray appears normal, proBNP within normal limit, no signs of fluid overload Plan Ordered echocardiogram Awaiting med rec, we will initiate patient's home medication once med rec is done 09/17/25 History of Congestive heart failure Patient reports history of CHF,last EF unknown Echo today showed LVEF 70-75% 09/18/2025: Continue to monitor. On lisinopril 20 mg daily. Hypertension History of hypertension, blood pressure is well controlled right now Awaiting med rec for patient's home medication hypotension. 09/17/25: Continued home medication lisinopril 20 mg and amlodipine 10 mg 09/18/2025: Current blood pressure within reference range. Plan: Continue lisinopril 20 mg daily. Amlodipine 10 mg daily. Gout As per patient, she has had few episodes of acute gout occasionally in her toes and thumb She takes allopurinol every day 09/18/25: Continued home medication allopurinol 100 mg BID Multiple myeloma Mild anemia with low WBC, low neutrophil count low RBC line, mild anemia- possibly early marrow suppression As per patient she was diagnosed with multiple myeloma two years ago, could not show any new records Not on any treatment Calcium, creatinine within normal limits Ordered total protein Plan Continue to monitor patient's CBC closely Chronic low back pain Patient said that she has chronic low back pain Initiated the patient on pain medications p.r.n. 09/18/2025. The patient states some lower back pain. Plan: [place] 5 mg q.4h PRN for moderate pain. [place] 10 mg q.4h for severe pain. CODY on possible CKD stage G2a Patient's creatinine is at 0.99 Ordered urine lytes, continue to closely monitor patient's creatinine 09/17/25 CODY resolved 09/18/2025: Continue to monitor CMP. Active alcohol use disorder and tobacco use disorder Patient's ETOH is elevated at 105, patient's CIWA score is five, elevated lactic acid Plan On moderate alcohol withdrawal protocol Monitor closely for signs of alcohol withdrawal like seizures, hallucinations Social Service and substance use navigator consulted. Code status: DNR DVT prophylaxis: Heparin Analgesia/sedation: Morphine/[place] Line/tube: PIV GI prophylaxis: None Nutrition: Heart healthy diet PT: Home with assist. No discharge barriers at home. Prognosis: Guarded Disposition: Continue medical management. Possible discharge tomorrow. Pradeep Hilliard Internal Medicine Resident [facility] Date of Service: Sep 18, 2025 Billing Provider: DON AMATO MD Common Visit Codes: [id number] INP/OBS CARE(HIGH) PRADEEP GRIDER, RES Sep 18, 2025 16:15 DON AMATO MD Sep 19, 2025 06:25
[2025-09-18] MEDS: ipratropium/albuterol 3ml nebule NEB PRN (16:48)
[2025-09-18] MEDS: lactobacillus rhamnosus 10,000 MMU CELLS/CAPSULE PO SCH (20:19)
[2025-09-19 03:12] VITALS: BP_SYST 122; BP_SYST 130; BP_SYST 139; BP_DIAS 84; BP_DIAS 85; PULSE 71; PULSE 81; PULSE 83
[2025-09-19 03:44] VITALS: PULSE 77; RESP 16; O2SAT 99
[2025-09-19 06:00] VITALS: BP 134/81; PULSE 64; RESP 14; TEMP 98.1; O2SAT 99
[2025-09-19 06:26] LABS: MEAN PLATELET VOLUME 9.3 FL (7.4-10.4); RED CELL DISTRIBUTION WIDTH 15.8 % (11.5-14.5)
[2025-09-19 06:54] LABS: CREATININE 1.04 MG/DL (0.40-0.90); TOTAL CARBON DIOXIDE 24.2 MMOL/L (24-32); eCRCL 44 ML/MIN; eGFR 62 ML/MIN
[2025-09-19 07:04] LABS: BASOPHILS % (MANUAL) 1.0 % (0-1); EOSINOPHILS % (MANUAL) 7.0 % (0-6); LYMPHOCYTES % (MANUAL) 24.0 % (21-51); MONOCYTES % (MANUAL) 7.0 % (2-12); NEUTROPHILS % (MANUAL) 61.0 % (42-75)
[2025-09-19 07:05] LABS: LARGE PLATELETS FEW; PLATELET ESTIMATE DECREASED
[2025-09-19 08:00] VITALS: BP_SYST 121; BP_SYST 125; BP_SYST 134; BP_DIAS 77; BP_DIAS 80; PULSE 72; PULSE 80; PULSE 84; RESP 16; O2SAT 97
[2025-09-19] MEDS ORDERED: CEFD300C3 PO (08:46)
[2025-09-19 10:00] VITALS: BP 134/78; PULSE 72; RESP 17; TEMP 98.1; O2SAT 97
[2025-09-19 10:21] VITALS: RESP 16
--- NOTE | 2025-09-19 19:48 | DISCHARGE SUMMARY-Residence ---
Discharge Summary Providers to CC Resident Creating Document: PAU BLAKE RES ~ Discharge Summary Admission Diagnosis: Syncopal fall,CHF,COPD,UTI Hospital Course DATE OF ADMISSION: 09/16/25 DATE OF DISCHARGE: 09/19/25 Discharge Diagnosis\Comment: UTI(Cystitis) Acute Metabolic Encelopathy Secondary to UTI. Syncope Secondary to Metabolic encephalopathy. COPD, Hypertension Operations\Procedures: none Consultants: none Complications: none Condition on DC: Stable New Medications: Cefdinir (Cefdinir) 300 Mg Capsule 1 CAP PO Q12H for 7 Days, #14 CAP 0 Refills Continued Medications: Allopurinol (Allopurinol) 100 Mg Tablet TAB PO BID Amlodipine Besylate (Norvasc) 10 Mg Tablet 1 TABLET PO DAILY, #10 TABLET 0 Refills Cholecalciferol (Vitamin D3) (Vitamin D3) 50 Mcg (2000 Unit) Tablet 2 TAB PO DAILY for 30 Days, #30 TAB 0 Refills Lisinopril (Lisinopril) 20 Mg Tablet 1 TAB PO DAILY for 30 Days, #30 TAB Tiotropium [place] (Spiriva) 18 Mcg Cap.w.dev 1 CAP INH DAILY for 30 Days, #30 CAP 0 Refills Trazodone HCl (Trazodone HCl) 50 Mg Tablet 4 TAB PO HS for 30 Days, #30 TAB 0 Refills Discharge Summary: Hospital Course This is 80-year-old female with past medical history of hypertension, COPD, multiple myeloma presented to the Emergency Room with complaints of generalized weakness and multiple falls throughout the day,Syncope was suspected,workup for syncope was performed, Carotid ultrasound revealed no significant stenosis of either carotid artery, orthostatic vitals were negative, and echocardiogram showed left ventricular ejection fraction of 7075% with elevated right heart pressures. Urinalysis was suggestive of a urinary tract infection, for which the patient was started on intravenous Rocephin 1 g daily. The syncopal episodes were considered likely secondary to metabolic encephalopathy in the setting of infection. The patients condition improved, and she remained hemodynamically stable and ready for discharge. 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 Physical Examination Physical exam: General: Awake, alert, oriented. No acute distress. Well-developed, hydrated and well-built nourished. No anemia, Jaundice or clubbing. HEENT: Conjunctive are pink, sclerae clear, no icterus, pupil is equal in both sides, reactive to light, no ear discharge, no pharyngeal erythema or an edema. Neck: Supple, no adenopathy, thyromegaly. Trachea is midline. No JVD. Chest: Respiratory: Vesicular breath sounds. No ronchi, crepitus. no wheezing. Resonance is normal upon percussion of all lung ashni. Cardiovascular: S1-S2 regular sinus rhythm and, regular rate, no gallops, no rubs, no murmurs Abdomen: No visible distention, Bowel sounds present on auscultation, on palpation: soft, nontender, no guarding, no rigidity. Extremities: No obvious deformities, no pitting edema bilaterally, capillary refill intact, peripheral pulsations are intact on both sides Neurologic: Mental status: alert and conscious, oriented to place, person and time, preserved memory, normal speech. Cranial nerves I-XII: Normal. Motor system: Preserved power, coordination, no evidenced involuntary movements, strength 5/5 in four extremities. Sensory system: Preserved temperature, pain and vibration sensation. 2+ deep tendon reflexes in biceps, triceps, quadriceps. Negative Babinski. Cerebellar: No nystagmus, dysdiadochokinesia, normal [id number] testing. Skin: Warm and dry. Labs Laboratory Tests Test 09/19/25 05:38 White Blood Count 2.1 X10'3 Red Blood Count 3.02 X10'6 Hemoglobin 9.5 g/dl Hematocrit 29.1 % Mean Corpuscular Volume 96.6 FL Mean Corpuscular Hemoglobin 31.5 PG Mean Corpuscular Hemoglobin Concent 32.6 g/dL Red Cell Distribution Width 15.8 % Platelet Count 113 X10'3 Mean Platelet Volume 9.3 FL Neutrophils (%) (Auto) 58.3 % Lymphocytes (%) (Auto) 24.1 % Monocytes (%) (Auto) 8.2 % Eosinophils (%) (Auto) 8.6 % Basophils (%) (Auto) 0.8 % Neutrophils # (Auto) 1.2 X10'3 Lymphocytes # (Auto) 0.5 X10'3 Monocytes # (Auto) 0.2 X10'3 Eosinophils # (Auto) 0.2 X10'3 Basophils # (Auto) 0.0 X10'3 CBC Comment Differential Total Cells Counted 100 Neutrophils % (Manual) 61.0 % Lymphocytes % (Manual) 24.0 % Monocytes % (Manual) 7.0 % Eosinophils % (Manual) 7.0 % Basophils % (Manual) 1.0 % Platelet Estimate Decreased Large Platelets Few Red Blood Cell Morphology Perf Basophilic Stippling Macrocytosis 1+ Tear Drop Cells Few Sodium Level 142 MMOL/L Potassium Level 3.5 MMOL/L Chloride Level 111 MMOL/L Carbon Dioxide Level 24.2 MMOL/L Anion Gap 7 Blood Urea Nitrogen 15 MG/DL Creatinine 1.04 MG/DL Estimated GFR/1.73 m2 62 ML/MIN BUN/Creatinine Ratio 14.4 Glucose Level 87 MG/DL Calcium Level 7.6 MG/DL Magnesium Level 1.8 MG/DL Total Bilirubin 0.2 MG/DL Aspartate Amino Transf (AST/SGOT) 17 U/L Alanine Aminotransferase (ALT/SGPT) 13 U/L Alkaline Phosphatase 53 IU/L Total Protein 5.7 G/DL Albumin 2.2 G/DL Globulin 3.5 G/DL Albumin/Globulin Ratio 0.6 Chemistry Comments Imaging Head CT: FINDINGS: Evaluation is degraded by motion artifact. No acute territorial infarct, intracranial hemorrhage, or mass effect. There are global involutional changes with compensatory prominence of the ventricles and sulci. Patchy periventricular and subcortical white matter hypoattenuation is nonspecific but may be related to small vessel ischemic disease. Bilateral lens implants. The paranasal sinuses and mastoid air cells are clear. Tiny left posterior scalp hematoma without underlying fracture. IMPRESSION: 1. No acute territorial infarct, intracranial hemorrhage, or mass effect. 2. Age-related involutional changes. Chronic microvascular changes. 3. Tiny left posterior scalp hematoma without underlying fracture. Cervical Spine CT ANATOMY: Mild reversal of the normal cervical lordosis. VERTEBRAL BODIES: Minimal superior endplate height loss of T4 measuring up to 10 percent correlate with clinical exam no discrete acute fracture plane however correlate with level of point tenderness. The dens is intact, the lateral masses of C1 are normally aligned, and the atlantodental interval is normal for age. Osseous fusion of the C5-6 vertebral bodies. SPINAL CANAL: No significant spinal canal stenosis. INTERVERTEBRAL DISCS: No CT findings to suggest traumatic disc herniation or acute hematoma. SOFT TISSUES: There is no prevertebral soft tissue swelling. OTHER: The partially visualized lung apices are clear. Retropharyngeal horizontal bilateral carotid vessels. IMPRESSION: 1. Minimal superior endplate height loss of T4 measuring up to 10 percent correlate with clinical exam no discrete acute fracture plane however correlate with level of point tenderness. Echo Conclusion Normal LV size and wall thickness. Overall systolic function is hyperdynamic. LVEF is 70-75%. RV is normal size and function. Elevated right heart pressures with an RVSP of 53 mmHg. The left atrium size is normal. Saline study was performed with 2 IV injections of 10 ccs of agitated normal saline at rest, with cough, and with valsalva. Negative saline study for right to left flow. Trileaflet AV appears mildly sclerotic without stenosis. No insufficiency. Mild MV annular calcification without stenosis. Trace regurgitation. TV appears structurally normal with mild regurgitation. Normal pericardium. No effusion. Carotid Artery U/S IMPRESSION: 1. No hemodynamically significant stenosis noted in the right carotid system. 2. No hemodynamically significant stenosis noted in the left carotid system. 3. Bilateral antegrade vertebral artery flow. Chest X-Ray FINDINGS/IMPRESSION: LUNGS: No pleural effusion, consolidation, or pneumothorax. MEDIASTINUM: Mild prominence of the aortic knob, which may be suggestive of hypertension. BONES: No acute osseous abnormality. OTHER: None. *Problems/Diagnosis: (1) Weakness Status: Resolved Total Time Spent on D/C: > 30 Minutes Date of Service: Sep 19, 2025 Billing Provider: DON AMATO MD Common Visit Codes: 18082-UVU/OBS DISCH DAY >30min PAU BLAKE, RES Sep 19, 2025 19:48 DON AMATO MD Sep 20, 2025 06:38
== END 2025-09-19 12:03 | disposition home health service (06) | DRG 871 ==
LOC: ER 18:56 → ED HOLD 22:59 → UNDOADMIN 23:15 → ED HOLD 09-17 03:50 → ORTHO 4S 09-17 03:50
PROVIDERS: ADMIT Internal Medicine; ATTEND Internal Medicine
DX: A41.9 Sepsis, unspecified organism (principal); G93.41 Metabolic encephalopathy; Z66 Do not resuscitate; C90.00 Multiple myeloma not having achieved remission; N17.9 Acute kidney failure, unspecified; N30.00 Acute cystitis without hematuria; I50.9 Heart failure, unspecified; J44.9 Chronic obstructive pulmonary disease, unspecified; I11.0 Hypertensive heart disease with heart failure; F10.10 Alcohol abuse, uncomplicated; E11.9 Type 2 diabetes mellitus without complications; Z96.653 Presence of artificial knee joint, bilateral; Z87.891 Personal history of nicotine dependence; Z79.899 Other long term (current) drug therapy; Z88.1 Allergy status to other antibiotic agents
CPT/HCPCS: 36415; 70450; 71045; 72125; 80048; 80053; 80061; 80305; 80320; 81001; 82570; 82948; 83036; 83605; 83735; 83880; 83930; 83935; 84100; 84145; 84300; 84443; 84484; 85007; 85025; 85610; 85651; 85730; 86140; 87040; 87077; 87081; 87088; 87186; 93005; 93306; 93880; 94640; 94760; 96365; 97116; 97161; 97530; 99285; G0378; J0696; J1644; J1815; J2270; J7030; J7040

== ENCOUNTER 2025-10-24 10:44 | Emergency (ER) | payer MEDICARE, MEDICAID ==
[~2025-10-24] VITALS: Ht 170.2 cm; Wt 81.8 kg
[~2025-10-24 10:44] MED LIST changes: -AMLO-888 PO; -ringers solution, lacted 1,000 ML IV SCH
--- NOTE | 2025-10-24 11:26 | ELECTROCARDIOGRAPH REPORT ---
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 ROBERTO Lerma Measurements Intervals [place] Rate: 73 P: 59 ID: [id number] QRS: 10 QRSD: 98 T: 51 QT: 415 QTc: 458 Interpretive Statements Sinus rhythm Abnormal R-wave progression, early transition Baseline wander in lead(s) II,III,aVR,aVL,aVF,V1,V3,V4,V5,V6 Electronically Signed On 10-25-2025 17:07:[address] ROBERTO Lerma Please click the below link to view image of tracing.
--- NOTE | 2025-10-24 11:26 | Physician Documentation ---
History of Present Illness ~ Chief Complaint: Hypertension Stated Complaint: HIGH BP Time Seen by MD: 10:57 Primary Medical Doctor: NONE HPI 80-year-old female presents to the ED with a complaint of hypertension. She states she was supposed to have a colonoscopy done today however it was discovered that her blood pressure was grossly elevated she is supposed to be taking lisinopril and amlodipine and has not had her amlodipine for over a week as she could not obtain a a refill She complains of a headache and occasional blurred vision denies any chest pain or shortness of breath Day of Onset: Oct 24, 2025 Medication Reconciliation Allergies: Coded Allergies: baclofen (Verified Allergy, Intermediate, INCONTINENCE, 09/16/25) Scheduled Acetaminophen (Acetaminophen), 1 TAB PO Q6H, (Reported) Allopurinol (Allopurinol), 1 TAB PO BID, (Reported) Amlodipine Besylate (Amlodipine Besylate), 1 TAB PO DAILY, (Reported) Cholecalciferol (Vitamin D3) (Vitamin D3), 2,000 UNITS PO DAILY, (Reported) Lactulose (Lactulose), 15-30 ML PO DAILY, (Reported) Lisinopril (Lisinopril), 1 TAB PO DAILY, (Reported) Tiotropium [place] (Spiriva Respimat), 2 PUFFS INH DAILY, (Reported) Trazodone HCl (Trazodone HCl), 4 TAB PO HS, (Reported) Scheduled PRN Lactulose (Lactulose), 15-30 ML PO BID PRN for constipation, (Reported) albuterol inhaler (Pro-Air Inhaler), 2 PUFFS IH Q4H PRN for SOB or wheezing, (Reported) Discontinued Medications Amlodipine Besylate (Norvasc), 1 TABLET PO DAILY Discontinued Reason: Other Cefdinir (Cefdinir), 1 CAP PO Q12H Discontinued Reason: Other Cholecalciferol (Vitamin D3) (Vitamin D3), 2 TAB PO DAILY, (Reported) Discontinued Reason: Prescription changed Tiotropium [place] (Spiriva), 1 CAP INH DAILY, (Reported) Discontinued Reason: Other Past Medical History Past Medical History: Congestive Heart Failure, Hypertension, COPD, Diabetes Past Surgical History: , orthopedic surgeries Patient History: Patient reports no known family medical history. Alcohol Use: Heavy Drug Use: none Lives with: Family Lives In: Home Occupation: disabled Review of Systems All Other Systems at this time: Reviewed and Negative ROS As stated above in the HPI, otherwise all systems are reviewed and negative. Physical Exam Vital Signs: Temperature: 98.0, Source: Temporal, Heart Rate: 77, Respiratory Rate: 14, BP: 209/140, Pulse Oximetry: 97, Weight: 81.820 Oxygen Flow Rate: 0 Physical Exam General: Alert, no apparent distress. HEENT: PERRL, EOMI, no injection, moist mucous membranes. Neck: Full range of motion. Respiratory: Lungs clear, no respiratory distress. Chest: No accessory muscle use. Cardiovascular: Regular rate and rhythm, no murmurs. Gastrointestinal: Soft, nontender, nondistended. Bowels sounds present. Extremities: Normal range of motion, no deformity. Neurologic: Oriented x4. Psychiatric: Normal mood and affect. Skin: Normal color, warm and dry. No edema, no ecchymosis. Progress Results/Orders Results/Orders Orders - TENZIN JEFFRIES [employer] Chest,Single View (10/24/25 11:09) Monitor (10/24/25 11:09) Saline Lock (10/24/25 11:09) Oxygen (10/24/25 11:09) Hs Troponin I W Calculations (10/24/25 14:09) Completed Orders - TENZIN JEFFRIES [employer] Hydralazine Inj. (Apresoline Inj.) (10/24/25 11:10) Chest,Single View (10/24/25 11:09) Cbc/Diff (10/24/25 11:09) BMP (10/24/25 11:09) PBNP (10/24/25 11:09) Electrocardiogram (10/24/25 11:09) Hs Troponin I W Calculations (10/24/25 11:09) Hs Troponin I W Calculations (10/24/25 13:09) Hydrocodone/Apap 5/325mg Tab ([place] 5/32 (10/24/25 11:45) Hydralazine Inj. (Apresoline Inj.) (10/24/25 12:05) Amlodipine Tablet (Norvasc Tablet) (10/24/25 12:15) Medications Received in ER Medications (Trade) Dose Ordered Sig/Kadie Route PRN Reason Start Time Stop Time Status Last Admin Dose Admin (Apresoline inj.) 10 mg ONCE ONCE IV 10/24/25 11:10 10/24/25 11:15 DC 10/24/25 11:35 10 MG ([place] 5/325mg tablet) 1 tab ONCE ONCE PO 10/24/25 11:45 10/24/25 11:46 DC 10/24/25 12:01 1 TAB (Apresoline inj.) 10 mg ONCE ONCE IV 10/24/25 12:05 10/24/25 12:06 DC 10/24/25 12:19 10 MG (Norvasc tablet) 5 mg ONCE ONCE PO 10/24/25 12:15 10/24/25 12:16 DC 10/24/25 12:19 5 MG Vital Signs 10/24/25 10/24/25 10/24/25 10/24/25 10:45 11:02 11:35 12:01 Temp 98.0 98.0 Pulse 75 77 71 Resp 16 14 14 B/P (MAP) 211/117 209/140 (163) Pulse Ox 98 97 O2 Flow Rate 0 0 10/24/25 10/24/25 10/24/25 12:19 12:19 13:02 Pulse 83 76 89 Resp 22 B/P (MAP) 184/97 (126) Pulse Ox 100 O2 Flow Rate 0 Laboratory Tests Test 10/24/25 11:21 10/24/25 12:50 White Blood Count 5.0 Red Blood Count 3.75 L Hemoglobin 11.9 L Hematocrit 36.6 Mean Corpuscular Volume 97.8 Mean Corpuscular Hemoglobin 31.7 H Mean Corpuscular Hemoglobin Concent 32.4 L Red Cell Distribution Width 16.9 H Platelet Count 206 Mean Platelet Volume 9.5 Neutrophils (%) (Auto) 49.4 Lymphocytes (%) (Auto) 36.2 Monocytes (%) (Auto) 9.2 Eosinophils (%) (Auto) 3.9 Basophils (%) (Auto) 1.3 H Neutrophils # (Auto) 2.4 Lymphocytes # (Auto) 1.8 Monocytes # (Auto) 0.5 Eosinophils # (Auto) 0.2 Basophils # (Auto) 0.1 CBC Comment Sodium Level 142 Potassium Level 3.6 Chloride Level 106 Carbon Dioxide Level 27.4 Anion Gap 9 Blood Urea Nitrogen 17 Creatinine 0.88 Estimated GFR/1.73 m2 75 BUN/Creatinine Ratio 19.3 Glucose Level 81 Calcium Level 9.2 Troponin I High Sensitivity 20 19 Pro-B-Type Natriuretic Peptide 2583 H Albumin 3.6 Chemistry Comments Troponin I High Sens Percent Delta 5 Troponin I Hi Sens Absolute Change -1 Medical Decision Making Additional information obtaine: old records Findings 50-year-old female was was treated for resistant hypertension via amlodipine and two doses of hydralazine. Period of time she trended downward to 161 systolic and states she is asymptomatic and would like to go home. I will go ahead and send her amlodipine to her pharmacy for her convenience Differential Dx:Considerations: Include CHF, Include HTN, essential, Include HTN, accelerated, Include HTN, malignant, Include HTN, encephalopathy, Include medical noncompliance, Include medication withdrawal, Include pulmonary edema, Include renal failure, Include -induced, Include other Departure Disposition: 01 HOME / SELF CARE / HOMELESS Impression: Primary Impression: Benign hypertension Condition: Stable Discharge Instructions: Hypertension, Adult, [id number] Referrals: NO PRIMARY CARE PROVIDER (PCP) Prescriptions Amlodipine Besylate (Norvasc) 10 Mg Tablet 1 TAB PO DAILY for 30 Days, #30 TAB 0 Refills Prov: TENZIN JEFFRIES NP 10/24/25 Education Educated: Patient Educated regarding: diagnosis Signature Scribe Signature: r Attestation: Scribed for Tenzin Jeffries Mds Coordinator by Tenzin Tsai NP . 10/24/25 13:41 TENZIN JEFFRIES NP Oct 24, 2025 11:26
[2025-10-24] MEDS: hydrALAZINE 20mg/ml inj. IV ONE ×2 (11:35→12:19)
[2025-10-24 11:41] LABS: MEAN PLATELET VOLUME 9.5 FL (7.4-10.4); RED CELL DISTRIBUTION WIDTH 16.9 % (11.5-14.5)
[2025-10-24] MEDS: HYDROcodone/acetaminophen 5mg/325mg tablet PO ONE (12:01)
[2025-10-24 12:05] LABS: CREATININE 0.88 MG/DL (0.40-0.90); PRO BRAIN NATRIURETIC PEPTIDE 2583 PG/ML (0-450); TOTAL CARBON DIOXIDE 27.4 MMOL/L (24-32); eCRCL 50 ML/MIN; eGFR 75 ML/MIN
--- NOTE | 2025-10-24 12:09 | RADIOLOGY REPORT ---
EXAM: DI CHEST,SINGLE VIEW Indication: CP Technique: Single frontal view of the chest was obtained Comparison: DI CHEST,SINGLE VIEW on DOS: 09/16/25 FINDINGS: Lines and Tubes: None Lungs: No focal consolidation. Pleura: No effusion. No pneumothorax. Cardiomediastinal contours: Unremarkable Bones: No acute osseous abnormality. IMPRESSION: No acute cardiopulmonary disease.
[2025-10-24] MEDS ORDERED: AMLO-888 PO (13:41)
[2025-10-24 14:04] VITALS: BP 180/115; PULSE 85; RESP 20; TEMP 98.7; O2SAT 98
== END 2025-10-24 14:21 | disposition home or self-care (01) ==
LOC: ER 10:45
DX: I11.0 Hypertensive heart disease with heart failure (principal); I50.9 Heart failure, unspecified; E11.9 Type 2 diabetes mellitus without complications; J44.9 Chronic obstructive pulmonary disease, unspecified; F10.90 Alcohol use, unspecified, uncomplicated; Z88.8 Allergy status to other drugs, medicaments and biological substances; Y90.9 Presence of alcohol in blood, level not specified
CPT/HCPCS: 36415; 71045; 80048; 83880; 84484; 85025; 93005; 96374; 96376; 99285; J0360

== ENCOUNTER → 2025-10-24 | Day surgery (SDC) | payer MEDICARE, MEDICAID ==
[~2025-10-24] VITALS: Ht 170.2 cm; Wt 81.6 kg
[~2025-10-24] MED LIST changes: +ACET-75 PO; +ALBU8HFA IH; +ALLO100T15 PO; +AMLO-708 PO; +AMLO-888 PO; -AMLO-912 PO; -CARV25TA2 PO; +CHOL100046 PO; -CLON0.2T; +LACT-373 PO; +LISI20TA28 PO; -SPIR25TA5 PO; +TIOT4MIS2 INH; +TRAZ-251 PO; -[UNRECOGNIZED DRUG - REMARK]; +ringers solution, lacted 1,000 ML IV SCH
== END | disposition home or self-care (01) ==
LOC: GI LAB 08:32
PROVIDERS: ATTEND Internal Medicine Gastroenterology
DX: D36.9 Benign neoplasm, unspecified site (principal); Z53.8 Procedure and treatment not carried out for other reasons; Z86.0100 Personal history of colon polyps, unspecified
CPT/HCPCS: A4620; J7120